=== PATIENT | male | born 1990 | race Hispanic/Latino ===

== ENCOUNTER 2018-09-07 11:59 | Emergency (ER) | payer OTHER ==
[~2018-09-07] VITALS: Ht 177.8 cm; Wt 70.0 kg
[~2018-09-07 11:59] MED LIST: (None)3.5 GM OP; GENTAMICIN15 ML/BTL OP
[2018-09-07] MEDS ORDERED: KEFLEX500 M1 PO (12:32)
[2018-09-07 12:36] VITALS: BP 110/69
== END 2018-09-07 12:47 | disposition home or self-care (01) | DRG 950 ==
LOC: ED 11:59
DX: S61.213D Laceration without foreign body of left middle finger without damage to nail, subsequent encounter (principal)